=== PATIENT | female | born 1965 | race Caucasian/White ===

== ENCOUNTER → 2016-11-23 | Outpatient (CLI) | payer BC ==
[2016-11-23 12:14] LABS: MEAN CELL VOLUME 85.3 fL (80-100); MEAN CORPUSCULAR HEMOGLOBIN 29.4 pg (25-34); MEAN CORPUSCULAR HGB CONC 34.5 g/dl (32-36); MEAN PLATELET VOLUME 10.5 fL (7.4-10.4); PLATELET COUNT 224 K/uL (130-400); RED BLOOD COUNT 4.69 M/uL (4.2-5.4); WHITE BLOOD COUNT 5.09 K/uL (4.8-10.8)
[2016-11-23 12:41] LABS: ALKALINE PHOSPHATASE 72 U/L (45-117); ALT/SGPT 32 U/L (12-78); AST/SGOT 23 U/L (15-37); BLOOD UREA NITROGEN 22 mg/dl (7-18); BUN/CREATININE RATIO 25.5 (10-20); CALCIUM 9.4 mg/dl (8.5-10.1); CARBON DIOXIDE 25 mmol/L (21-32); CHLORIDE 109 mmol/L (98-107); CHOLESTEROL 210 mg/dl (0-200); CHOLESTEROL/HDL RATIO 2.8; CREATININE 0.88 mg/dl (0.60-1.20); GLUCOSE 91 mg/dl (70-99); HDL CHOLESTEROL 76 mg/dl; LDL CHOLESTEROL CALCULATED 109 mg/dl; POTASSIUM 4.4 mmol/L (3.5-5.1); SODIUM 143 mmol/L (136-145); TRIGLYCERIDES 126 mg/dl (0-150); VERY LOW DENSITY LIPOPROT CALC 25 mg/dl
[2016-11-23 12:42] LABS: ALB/GLOB RATIO 1.1 (0.9-2)
== END | disposition home or self-care (01) ==
LOC: C.LABBFT 08:49
PROVIDERS: ATTEND Nurse Practitioner
DX: E78.5 Hyperlipidemia, unspecified (principal)

== ENCOUNTER → 2016-12-28 | Outpatient (CLI) | payer BC ==
[~2016-12-28] MED LIST: GLUCTAB7 PO; SPECCAP4 PO; [UNRECOGNIZED DRUG - CODE] PO
== END | disposition home or self-care (01) ==
LOC: C.PAPS 14:48
PROVIDERS: ATTEND Obstetrics & Gynecology
DX: Z01.419 Encounter for gynecological examination (general) (routine) without abnormal findings (principal)

== ENCOUNTER → 2017-07-12 | Day surgery (SDC) | payer BC ==
[2017-06-27 15:33] VITALS: Ht 167.6 cm; Wt 100.0 kg
[~2017-07-12] VITALS: Ht 167.6 cm; Wt 100.0 kg
[~2017-07-12] MED LIST changes: +LIDOCAINE HCL 2% 2 ML VIAL (20MG/ML) ONE; +PROPOFOL IV EMULSION 10 MG/ML 20 ML VIAL IV ONE; +SODIUM CHLORIDE 0.9% 500ML 500 ML IV ONE
--- NOTE | 2017-07-12 13:40 | Endo History and Physical ---
History & Physical Date of Service: Jul 12, 2017. Chief Complaint: Screening Family Hx of Colon Polyps Referring Physician: Dr Baig History of Present Illness 51 yo CF who presents for screening colonoscopy. Past Surgical History Hx Cardiac Surgery: No Hx Internal Defibrillator: No Hx Pacemaker: No Hx Abdominal Surgery: Yes (SAV, TUBAL LIGATION) Hx of Implantable Prosthesis: No Hx Post-Op Nausea and Vomiting: Yes (EXTREME) Hx Cancer Surgery: No Hx Thoracic Surgery: No Hx Orthopedic: No Hx Urinary Tract Surgery: No Family History Polyp Social History Smoking Status: Former Smoker Hx Substance Use: No Hx Alcohol Use: Yes (OCCASIONALLY) Allergies Coded Allergies: No Known Allergies (Verified , 07/12/17) Current Medications Reported Home Medications Medications Dose Route/Sig Max Daily Dose Days Date Category Dose Instructions Glucosamine Chondroitin (Jczpwjapcyg-Sghsbmpvumy-Rjx C-) 1 Tab Tab 1 Tab PO QAM 06/27/17 Reported Collagen Ultra (Specialty Vitamins Products) 1 Cap Cap 2 Cap PO QAM 06/27/17 Reported [Mult-James] 1 Dose PO QAM 06/27/17 Reported [employer] Vital Signs Weight (Kilograms): 100 Height (Feet): 5 Height (Inches): 6 Date Time Temp Pulse Resp B/P (MAP) Pulse Ox O2 Delivery O2 Flow Rate FiO2 07/12/17 13:14 37 74 20 141/81 (101) 98 Room Air Physical Exam General Appearance: WD/WN, no apparent distress Respiratory/Chest: Auscultation: breath sounds normal Cardiovascular: Heart Auscultation: RRR Abdomen: Bowel Sounds: normal Inspection & Palpation: soft, non-distended, no tenderness, guarding & rebound Assessment and Plan Assessment: 51 yo CF who presents for screening colonoscopy. Plan: Proceed with colonoscopy.
--- NOTE | 2017-07-12 14:03 | Discharge Instructions ---
Endoscopy Patient Instructions Date / Procedure(s) Performed Jul 12, 2017. Colonoscopy Allergy Information Coded Allergies: No Known Allergies (Verified , 07/12/17) Discharge Date / Findings Jul 12, 2017. Rectal polyp Diverticulosis Internal hemorrhoids Medication Instructions OK to resume all medications today as prescribed Reported Home Medications Medications Dose Route/Sig Max Daily Dose Days Date Category Dose Instructions Glucosamine Chondroitin (Mcaebrellix-Swmznueyyfu-Rpl C-) 1 Tab Tab 1 Tab PO QAM 06/27/17 Reported Collagen Ultra (Specialty Vitamins Products) 1 Cap Cap 2 Cap PO QAM 06/27/17 Reported [Mult-James] 1 Dose PO QAM 06/27/17 Reported [employer] Provider Instructions Activity Restrictions - No exercising or heavy lifting for 24 hours. - Do not drink alcohol the day of the procedure. - Do not drive a car or operate machinery until the day after the procedure. - Do not make any important decisions or sign important papers in 24 hours after the procedure. Following Day: - Return to full activity which may include returning to work/school. Diet Start your diet with liquids and light foods (jello, soup, juice, toast). Then eat your usual diet if not nauseated. Treatment For Common After Affects For mild abdominal pain, bloating, or excessive gas: - Rest - Eat lightly - Lie on right side Follow-Up Information Follow-up with Dr Baig as scheduled Anesthesia Information What You Should Know You have had a procedure that required some medicine to reduce anxiety and discomfort. This treatment is called moderate sedation. After receiving the treatment, you may be sleepy, but you will be able to breathe on your own. The effects of the treatment may last for several hours. Follow these instructions along with Activity/Diet recommendations noted above: * Do NOT do anything where dizziness or clumsiness would be dangerous. * Rest quietly at home today, then you can be up and about tomorrow. * Have a responsible person stay with you the rest of today. * You may have had an I.V. today. If so, you may take the dressing off later today. Recommendations Call your doctor if: * Trouble breathing * Continuous vomiting for more than 24 hours * Temperature above 101 degrees * Severe abdominal pain or bloating * Pain not relieved by pain medicine ordered * There is increased drainage or redness from any incision * A large amount of rectal bleeding greater than 2-3 tablespoons. (If you had a polyp/s removed or have hemorrhoids, a small amount of blood - from the rectum is to be expected.) * You have any unanswered questions or concerns. IN THE EVENT OF A SERIOUS EMERGENCY, GO TO THE NEAREST EMERGENCY ROOM Your discharge instructions were prepared by provider Menedz Ny. Patient Instructions Signature Page Mila Kelly Patient (or Guardian) Signature/Date: I have read and understand the instructions given to me by my caregivers. Caregiver/RN/Doctor Signature/Date: The above-named patient and/or guardian has received patient instructions on this date. + Original Patient Signature Page (only) stays with chart. Please make copy for patient.
--- NOTE | 2017-07-12 14:07 | GI REPORT ---
Procedure Date: 07/12/2017 1:32 PM Procedure: Colonoscopy Indications: Screening for colorectal malignant neoplasm Medicines: Monitored Anesthesia Care Complications: No immediate complications. Estimated Blood Loss: Estimated blood loss: none. Procedure: Pre-Anesthesia Assessment: - Prior to the procedure, a History and Physical was performed, and patient medications and allergies were reviewed. The patient's tolerance of previous anesthesia was also reviewed. The risks and benefits of the procedure and the sedation options and risks were discussed with the patient. All questions were answered, and informed consent was obtained. Prior Anticoagulants: The patient has taken no previous anticoagulant or antiplatelet agents. ASA Grade Assessment: II - A patient with mild systemic disease. After reviewing the risks and benefits, the patient was deemed in satisfactory condition to undergo the procedure. After I obtained informed consent, the scope was passed under direct vision. Throughout the procedure, the patient's blood pressure, pulse, and oxygen saturations were monitored continuously. The scope was introduced through the anus and advanced to the terminal ileum. The colonoscopy was performed without difficulty. The patient tolerated the procedure well. The quality of the bowel preparation was good. The terminal ileum, ileocecal valve, appendiceal orifice, and rectum were photographed. Findings: A 3 mm polyp was found in the rectum. The polyp was sessile. The polyp was removed with a cold biopsy forceps. Resection and retrieval were complete. Multiple small-mouthed diverticula were found in the sigmoid colon. Non-bleeding internal hemorrhoids were found during retroflexion. The hemorrhoids were small. Impression: - One 3 mm polyp in the rectum, removed with a cold biopsy forceps. Resected and retrieved. - Diverticulosis in the sigmoid colon. - Non-bleeding internal hemorrhoids. Recommendation: - Resume previous diet. - Continue present medications. - Repeat colonoscopy for surveillance based on pathology results. - Return to primary care physician as previously scheduled. Mendez Ny DO 07/12/2017 2:06:36 PM This report has been signed electronically. Note Initiated On: 07/12/2017 1:32 PM I attest to the content of the Intraoperative Record and orders documented therein, exceptions below
[2017-07-12 14:31] VITALS: BP 152/96; PULSE 68; O2SAT 98
--- NOTE | 2017-07-12 14:36 | Anesthesiology Progress Note ---
Anesthesia Post Op Note Date & Time Jul 12, 2017 at 14:36 Vital Signs Pain Intensity: 0 Vital Signs Past 12 Hours Date Time Temp Pulse Resp B/P (MAP) Pulse Ox O2 Delivery O2 Flow Rate FiO2 07/12/17 14:31 68 16 152/96 (114) 98 Room Air 07/12/17 14:16 72 16 128/79 (95) 96 Room Air 07/12/17 14:01 83 16 113/63 (80) 95 Room Air 07/12/17 13:14 37 74 20 141/81 (101) 98 Room Air Notes Mental Status: alert / awake / arousable, participated in evaluation Pt Amnestic to Procedure: Yes Nausea / Vomiting: adequately controlled Pain: adequately controlled Airway Patency, RR, SpO2: stable & adequate BP & HR: stable & adequate Hydration State: stable & adequate Anesthetic Complications: no major complications apparent
== END | disposition home or self-care (01) ==
LOC: C.GI 12:40
PROVIDERS: ATTEND Internal Medicine
DX: Z12.11 Encounter for screening for malignant neoplasm of colon (principal); K62.1 Rectal polyp; K57.30 Diverticulosis of large intestine without perforation or abscess without bleeding; K64.8 Other hemorrhoids; Z83.71 Family history of colonic polyps; Z87.891 Personal history of nicotine dependence

== ENCOUNTER → 2017-10-01 | Outpatient (CLI) | payer OTHER ==
[~2017-10-01] MED LIST changes: -LIDOCAINE HCL 2% 2 ML VIAL (20MG/ML) ONE; -PROPOFOL IV EMULSION 10 MG/ML 20 ML VIAL IV ONE; -SODIUM CHLORIDE 0.9% 500ML 500 ML IV ONE
--- NOTE | 2017-10-02 07:52 | MAMMOGRAPHY REPORT ---
BILATERAL DIGITAL SCREENING MAMMOGRAM TOMOSYNTHESIS WITH CAD: 10/01/2017 CLINICAL HISTORY: Routine screening. Patient has no complaints. TECHNIQUE: Breast tomosynthesis in addition to standard 2D mammography was performed. Current study was also evaluated with a Computer Aided Detection (CAD) system. COMPARISON: Comparison is made to exams dated: 09/29/2016 mammogram, 09/28/2015 mammogram, 09/23/2014 ma mmogram, 09/22/2013 mammogram, 09/27/2012 mammogram, and 09/19/2012 mammogram - [facility] er. BREAST COMPOSITION: There are scattered areas of fibroglandular density in both breasts. FINDINGS: The parenchymal pattern is unchanged. No developing mass, architectural distortion or clus ter of suspicious microcalcifications is seen in either breast. IMPRESSION: ACR BI-RADS CATEGORY 2: BENIGN There is no mammographic evidence of malignancy. A 1 year screening mammogram is recommended. The pa tient will receive written notification of the results. Approximately 10% of breast cancers are not detected with mammography. A negative mammographic report should not delay biopsy if a clinically suggestive mass is present. Maria Del Carmen Dewey M.D. ay/:10/01/2017 16:58:13 Panelbeater: Laure Devi, [facility] letter sent: Normal 1/2 BI-RADS Code: ACR BI-RADS Category 2: Benign
== END | disposition home or self-care (01) ==
LOC: C.MAMM 08:54
PROVIDERS: ATTEND Obstetrics & Gynecology
DX: Z12.31 Encounter for screening mammogram for malignant neoplasm of breast (principal)

== ENCOUNTER → 2017-11-26 | Outpatient (CLI) | payer OTHER ==
[2017-11-26 13:29] LABS: ALBUMIN 3.8 gm/dl (3.4-5.0); ALT/SGPT 63 U/L (12-78); BLOOD UREA NITROGEN 23 mg/dl (7-18); CALCIUM 9.4 mg/dl (8.5-10.1); CARBON DIOXIDE 29 mmol/L (21-32); CHOLESTEROL 214 mg/dl (0-200); CREATININE 1.02 mg/dl (0.60-1.20); GLUCOSE 96 mg/dl (70-99); POTASSIUM 4.5 mmol/L (3.5-5.1); SODIUM 138 mmol/L (136-145)
[2017-11-26 13:32] LABS: ALKALINE PHOSPHATASE 99 U/L (45-117); AST/SGOT 37 U/L (15-37); LDL CHOLESTEROL CALCULATED 122 mg/dl; TOTAL PROTEIN 7.7 gm/dl (6.4-8.2)
== END | disposition home or self-care (01) ==
LOC: C.LABBFT 08:43
PROVIDERS: ATTEND Nurse Practitioner
DX: E78.5 Hyperlipidemia, unspecified (principal); I10 Essential (primary) hypertension

== ENCOUNTER 2018-10-16 21:21 | Observation (INO) ==
[2018-10-16] MEDS ORDERED: ONDANSETRON INJ 2 MG/ML 2 ML VIAL IV STA (21:44)
[2018-10-16] MEDS ORDERED: SODIUM CHLORIDE 0.9% 500 ML IV SCH (21:45)
[2018-10-16 22:03] LABS: Basophils # (auto) 0.02 K/uL (0-0.2); Basophils % (auto) 0.2 %; Eosinophils # (auto) 0.08 K/uL (0-0.5); Eosinophils % (auto) 0.6 %; Hematocrit (blood only) 39.9 % (37-47); Hemoglobin 14.1 g/dL (12.0-16.0); Immature Granulocytes # (auto) 0.03 K/uL (0.00-0.02); Immature Granulocytes % (auto) 0.2 %; Lymphocytes # (auto) 2.19 K/uL (1.2-3.4); Lymphocytes % (auto) 17.3 %; Mean Corpuscular Hgb Conc 35.3 g/dL (32-36); Mean Corpuscular Volume 84.9 fL (80-100); Mean Platelet Volume 9.7 fL (7.4-10.4); Monocytes # (auto) 0.73 K/uL (0.11-0.59); Monocytes % (auto) 5.8 %; Neutrophils # (auto) 9.61 K/uL (1.4-6.5); Neutrophils % (auto) 75.9 %; Platelet Count 230 K/uL (130-400); RDW Coefficient of Variation 12.8 % (11.5-14.5); RDW Standard Deviation 39.6 fL (36.4-46.3); White Blood Count 12.66 K/uL (4.8-10.8)
[2018-10-16 22:12] LABS: Appearance Urine Clear (Clear); Bilirubin Urine Negative (Negative); Color Urine Dark Yellow; Glucose Urine UA Negative (Negative); Ketones Urine Trace (Negative); Leukocyte Esterase Urine Negative (Negative); Nitrite Urine Negative (Negative); Protein Urine Negative (Negative); Specific Gravity Urine 1.017 (1.000-1.030); Urobilinogen Urine Negative (Negative)
[2018-10-16 22:13] LABS: Pregnancy Test, Urine Negative (Negative)
[2018-10-16 22:20] LABS: Albumin Level 4.1 gm/dl (3.4-5.0); Aspartate Aminotransferase 21 U/L (15-37); BUN Creatinine Ratio 16.2 (10-20); Blood Urea Nitrogen 18 mg/dl (7-18); Calcium 9.1 mg/dl (8.5-10.1); Carbon Dioxide 26 mmol/L (21-32); Chloride 104 mmol/L (98-107); Creatinine Clr Calc Pharmacy 78.5 ml/min; Est GFR (African American) 67.3; Est GFR (Non-African American) 58.1; Glucose 101 mg/dl (70-99); Potassium 3.5 mmol/L (3.5-5.1); Sodium 138 mmol/L (136-145)
[2018-10-16 22:25] LABS: Alanine Aminotransferase 34 U/L (12-78); Albumin Globulin Ratio 1.1 (0.9-2); Alkaline Phosphatase 81 U/L (45-117); Bilirubin,Total 0.7 mg/dl (0.2-1); Globulin 3.7 gm/dl (2.5-4.0); Total Protein 7.8 gm/dl (6.4-8.2); Troponin I < 0.015 ng/ml (0-0.045)
[2018-10-16] MEDS ORDERED: IOVERSOL 100ml IV PRN (22:40)
--- NOTE | 2018-10-16 22:51 | CT Scan Report ---
CT abd pelvis IV con only CT DOSE: 1275.81 mGy.cm HISTORY: Flank pain n/v/RLQ TECHNIQUE: Multiaxial CT images of the abdomen and pelvis were performed following the use of intrave nous contrast. A dose lowering technique was utilized adhering to the principles of ALARA. COMPARISON STUDY: None. FINDINGS: Lung bases are clear. The liver spleen and pancreas are unremarkable. Prior cholecystectomy . The adrenal glands are normal. The kidneys enhance appropriately. 5 mm nonobstructing calcification mid pole left kidney. No evidence for hydroureteronephrosis. Nonobstructive bowel pattern. The appendix is mildly distended and fluid-filled at 8 mm. There is a t race amount of periappendiceal infiltrative change. There is no evidence for abscess collection or ob struction. Mild chronic sigmoid diverticulosis. No evidence for acute diverticulitis. IMPRESSION: 1. acute appendicitis. 2. The appendix is distended and fluid-filled at 8 millimeters with a trace amount of periappendiceal infiltrative change. 3. No evidence for abscess collection or obstructive change. 4. 5 mm nonobstructing left renal calcification. 5. Mild chronic sigmoid diverticulosis. No evidence for diverticulitis. The above report was generated using voice recognition software. It may contain grammatical, syntax or spelling errors. Electronically signed by: Kali Delgado M.D. 10/16/2018 10:49 PM
[2018-10-16] MEDS ORDERED: cefOXitin 2,000 MG/60 ML BAG IV STA (23:02)
--- NOTE | 2018-10-16 23:06 | Emergency Department Note ---
Entered by Lois Crowder acting as a scribe for Alexis Paul M.D. History of Present Illness General Chief complaint: Abdominal Pain Stated complaint: RLQ PAIN, NAUSEA, VOMITING Source: patient Mode of arrival: ambulatory Limitations: no limitations History of Present Illness Provider complaint: abdominal pain Onset (ago): hour(s) (earlier today) Location: abdomen and right Pain Consistency: + other (persistent) Maximum Pain Intensity: 10 Current Pain Intensity: 7 Quality: + other (bloated) Associated symptoms: + denies other symptoms (urinary symptoms), + fever/chills and + nausea/vomiting The patient is a 52 year old female who presents to the Emergency Room with complaints of a persistent abdominal pain that began earlier today. The patient reports that the pain is located in her right lower quadrant and notes that she feels bloated. She states that she has been nauseous and has had 2 episodes of emesis. She denies any sick contacts. The patient notes that she has had chills and has been unable to pass gas. The patient states that she has a history of hypertension, cholecystectomy, right eye retinal reattachment, and tubal ligation. She denies any urinary symptoms. Home Medications Home Medications Medication Instructions Recorded Confirmed Type amlodipine 5 mg PO DAILY 10/16/18 10/16/18 History timolol maleate 1 drp OPR BID 10/16/18 10/16/18 History Allergies Allergy/AdvReac Type Severity Reaction Status Date / Time No Known Allergies Allergy Verified 10/16/18 21:57 Past Med/Surg History Medical History Retinal defect of right eye with detachment (Resolved) Hypertension Morbid obesity Surgical History History of tubal ligation History of eye surgery History of cholecystectomy Social History marital status: Current Living Situation: Spouse Feels Safe at Home: Yes Smoking Status: Never smoker Review of Systems See HPI for pertinent positives & negatives. and A total of 10 systems reviewed and were otherwise negative Physical Exam Vital Signs Vital Signs - 24 hr 10/16/18 21:23 10/16/18 21:44 10/16/18 23:05 Temperature 36.8 C Temperature Source Oral Sepsis Recent Fever Within 48 Hours No Sepsis Action Taken by Nursing No Action Required Pulse Rate 89 Pulse Rate [Apical] 84 Respiratory Rate 20 18 Respiratory Effort / Characteristics Non-Labored Spontaneous Non-Labored Spontaneous Respiratory Depth Normal Normal Blood Pressure 172/95 H Blood Pressure [Right Arm] 154/91 H Blood Pressure Mean 120 Blood Pressure Mean [Right Arm] 112 Pulse Oximetry 96 98 Oxygen Delivery Method Room Air Room Air Room Air 10/16/18 23:59 Temperature Temperature Source Sepsis Recent Fever Within 48 Hours Sepsis Action Taken by Nursing Pulse Rate 85 Pulse Rate [Apical] Respiratory Rate 18 Respiratory Effort / Characteristics Respiratory Depth Blood Pressure 150/88 H Blood Pressure [Right Arm] Blood Pressure Mean Blood Pressure Mean [Right Arm] Pulse Oximetry 98 Oxygen Delivery Method Room Air GENERAL: Awake, alert, apperas mildly uncomfortable HENT: Normocephalic, atraumatic. EYES: Normal conjunctiva. Sclera non-icteric. NECK: Supple. No nuchal rigidity. RESPIRATORY: Clear to auscultation. No wheezes. Normal respiratory effort. CARDIAC: Normal rate. Normal rhythm. Extremities warm and well perfused. GI: Soft, non-distended. Mild epigastric tenderness to palpation. Moderate right lower quadrant tendenress. Some guarding. No masses. RECTAL: Deferred. MUSCULOSKELETAL: Atraumatic. Chest examination reveals no tenderness. LOWER EXTREMITIES: Calves are equal size bilaterally and non-tender. No edema NEURO: Normal sensorium. No sensory or motor deficits noted. No facial droop. SKIN: Warm and dry. No rash or jaundice noted. Course 2138: Past medical records reviewed. The patient was evaluated in room B6, and a complete history and physical examination were performed. 2301: I reviewed the patient's case with Dr. Ramirez - [facility] General Surgery. She will evaluate the patient for further management. Administered Medications Ioversol (Optiray 320 100ml) 93 ml IV ONCE PRN PRN Reason: Interaction Checking Stop: 10/20/18 22:39 Last Admin: 10/16/18 22:41 Dose: 93 ml Discontinued Medications Sodium Chloride (Nss) 500 mls @ 999 mls/hr IV .Q31M MARY Stop: 10/16/18 22:15 Last Infusion: 10/16/18 22:35 Dose: 0 mls/hr Admin: 10/16/18 22:08 Dose: 999 mls/hr Cefoxitin Sodium (Mefoxin) 2,000 mg in 60 mls @ 100 mls/hr IV NOW STA Stop: 10/16/18 23:37 Last Infusion: 10/17/18 00:01 Dose: 0 mls/hr Admin: 10/16/18 23:14 Dose: 100 mls/hr Ondansetron HCl (Zofran) 4 mg IV NOW STA Stop: 10/16/18 21:45 Last Admin: 10/16/18 22:08 Dose: 4 mg Medical Decision Making Differential Diagnosis Differential diagnosis includes: gastritis, peptic ulcer disease, GERD, gallbladder disease, pancreatitis, small bowel obstruction, acute coronary syndrome, pericarditis, ischemic bowel, irritable bowel disease, irritable bowel syndrome, appendicitis, diverticulitis, malignancy, hernia, UTI, torsion, perforation, trauma, and kidney stones. Medical Records Attestation: I reviewed the patient's medical records. Home Medications Current Medication List: was personally reviewed by me Laboratory Data Attestation: I reviewed the patient's lab results. Result diagrams: 10/16/18 21:55 10/16/18 21:55 Lab Results 10/16/18 10/16/18 10/16/18 Range/Units 21:55 21:55 21:55 WBC 12.66 H (4.8-10.8) K/uL RBC 4.70 (4.2-5.4) M/uL Hgb 14.1 (12.0-16.0) g/dL Hct 39.9 (37-47) % MCV 84.9 (80-100) fL MCH 30.0 (25-34) pg MCHC 35.3 (32-36) g/dL RDW Std Deviation 39.6 (36.4-46.3) fL RDW Coeff of Loan 12.8 (11.5-14.5) % Plt Count 230 (130-400) K/uL MPV 9.7 (7.4-10.4) fL Immature Gran % (Auto) 0.2 % Neut % (Auto) 75.9 % Lymph % (Auto) 17.3 % Major % (Auto) 5.8 % Eos % (Auto) 0.6 % Baso % (Auto) 0.2 % Immature Gran # (Auto) 0.03 H (0.00-0.02) K/uL Neut # (Auto) 9.61 H (1.4-6.5) K/uL Lymph # (Auto) 2.19 (1.2-3.4) K/uL Major # (Auto) 0.73 H (0.11-0.59) K/uL Eos # (Auto) 0.08 (0-0.5) K/uL Baso # (Auto) 0.02 (0-0.2) K/uL Sodium 138 (136-145) mmol/L Potassium 3.5 (3.5-5.1) mmol/L Chloride 104 (98-107) mmol/L Carbon Dioxide 26 (21-32) mmol/L Anion Gap 8.0 (3-11) BUN 18 (7-18) mg/dl Creatinine 1.10 (0.6-1.2) mg/dl Est Cr Clr Drug Dosing 78.5 ml/min Est GFR ( Amer) 67.3 Est GFR (Non-Af Amer) 58.1 BUN/Creatinine Ratio 16.2 (10-20) Glucose 101 H (70-99) mg/dl Calcium 9.1 (8.5-10.1) mg/dl Total Bilirubin 0.7 (0.2-1) mg/dl AST 21 (15-37) U/L ALT 34 (12-78) U/L Alkaline Phosphatase 81 (45-117) U/L Troponin I < 0.015 (0-0.045) ng/ml Total Protein 7.8 (6.4-8.2) gm/dl Albumin 4.1 (3.4-5.0) gm/dl Globulin 3.7 (2.5-4.0) gm/dl Albumin/Globulin Ratio 1.1 (0.9-2) Lipase 118 (73-393) U/L Urine Color Dark Yellow Urine Appearance Clear (Clear) Urine pH 5.0 (4.5-7.5) Ur Specific Weston 1.017 (1.000-1.030) Urine Protein Negative (Negative) Urine Glucose (UA) Negative (Negative) Urine Ketones Trace H (Negative) Urine Blood Negative (Negative) Urine Nitrite Negative (Negative) Urine Bilirubin Negative (Negative) Urine Urobilinogen Negative (Negative) Ur Leukocyte Esterase Negative (Negative) Urine Test (Negative) 10/16/18 Range/Units 21:55 WBC (4.8-10.8) K/uL RBC (4.2-5.4) M/uL Hgb (12.0-16.0) g/dL Hct (37-47) % MCV (80-100) fL MCH (25-34) pg MCHC (32-36) g/dL RDW Std Deviation (36.4-46.3) fL RDW Coeff of Loan (11.5-14.5) % Plt Count (130-400) K/uL MPV (7.4-10.4) fL Immature Gran % (Auto) % Neut % (Auto) % Lymph % (Auto) % Major % (Auto) % Eos % (Auto) % Baso % (Auto) % Immature Gran # (Auto) (0.00-0.02) K/uL Neut # (Auto) (1.4-6.5) K/uL Lymph # (Auto) (1.2-3.4) K/uL Major # (Auto) (0.11-0.59) K/uL Eos # (Auto) (0-0.5) K/uL Baso # (Auto) (0-0.2) K/uL Sodium (136-145) mmol/L Potassium (3.5-5.1) mmol/L Chloride (98-107) mmol/L Carbon Dioxide (21-32) mmol/L Anion Gap (3-11) BUN (7-18) mg/dl Creatinine (0.6-1.2) mg/dl Est Cr Clr Drug Dosing ml/min Est GFR ( Amer) Est GFR (Non-Af Amer) BUN/Creatinine Ratio (10-20) Glucose (70-99) mg/dl Calcium (8.5-10.1) mg/dl Total Bilirubin (0.2-1) mg/dl AST (15-37) U/L ALT (12-78) U/L Alkaline Phosphatase (45-117) U/L Troponin I (0-0.045) ng/ml Total Protein (6.4-8.2) gm/dl Albumin (3.4-5.0) gm/dl Globulin (2.5-4.0) gm/dl Albumin/Globulin Ratio (0.9-2) Lipase (73-393) U/L Urine Color Urine Appearance (Clear) Urine pH (4.5-7.5) Ur Specific Weston (1.000-1.030) Urine Protein (Negative) Urine Glucose (UA) (Negative) Urine Ketones (Negative) Urine Blood (Negative) Urine Nitrite (Negative) Urine Bilirubin (Negative) Urine Urobilinogen (Negative) Ur Leukocyte Esterase (Negative) Urine Test Negative (Negative) Imaging Data Radiologist's Impression: Radiology results as stated below per my review and the radiologist's interpretation: CT abd pelvis IV con only CT DOSE: 1275.81 mGy.cm HISTORY: Flank pain n/v/RLQ TECHNIQUE: Multiaxial CT images of the abdomen and pelvis were performed following the use of intravenous contrast. A dose lowering technique was utilized adhering to the principles of ALARA. COMPARISON STUDY: None. FINDINGS: Lung bases are clear. The liver spleen and pancreas are unremarkable. Prior cholecystectomy. The adrenal glands are normal. The kidneys enhance appropriately. 5 mm nonobstructing calcification mid pole left kidney. No evidence for hydroureteronephrosis. Nonobstructive bowel pattern. The appendix is mildly distended and fluid-filled at 8 mm. There is a trace amount of periappendiceal infiltrative change. There is no evidence for abscess collection or obstruction. Mild chronic sigmoid diverticulosis. No evidence for acute diverticulitis. IMPRESSION: 1. acute appendicitis. 2. The appendix is distended and fluid-filled at 8 millimeters with a trace amount of periappendiceal infiltrative change. 3. No evidence for abscess collection or obstructive change. 4. 5 mm nonobstructing left renal calcification. 5. Mild chronic sigmoid diverticulosis. No evidence for diverticulitis. The above report was generated using voice recognition software. It may contain grammatical, syntax or spelling errors. Electronically signed by: Kali Delgado M.D. 10/16/2018 10:49 PM ECG Data Attestation: I personally reviewed and interpreted this ECG as follows: Indication: abdominal pain Rate (beats per minute): 72 Rhythm: normal sinus Findings: + T-wave inversion (in lead 3); no PVC, no ST depression and no ST elevation Comparison ECG Date: no prior available Blood Pressure Blood Pressure Findings: Elevated blood pressure Blood Pressure Disposition: elevated BP felt to be situational MDM Narrative 52-year-old female history hypertension presenting today complaining of onset this evening of some mild epigastric and right abdominal and right lower abdominal pain. No trauma or fevers reported. Nausea and vomiting reported without diarrhea. States she feels bloated. Denies history. Given the abdominal tenderness CT scan pelvis completed to exclude appendicitis or other acute intra-abdominal pathology such as perforation. Prior cholecystectomy. She not acutely peritoneal however. Prior cholecystectomy. Urinalysis completed as well. EKG and troponin completed help exclude ACS which I do not believe this is. Laboratory studies show a slight leukocytosis of his significant pancreatitis/lipase elevation or LFT abnormality. Urinalysis without signs of infection. CT scan consistent with acute appendicitis without evidence of perforation or abscess. Patient updated. Cefoxitin given after discussion with Dr. Ramirez our general surgeon. Plans made for admission for operative intervention. Patient declining pain medicine. Impression & Plan Acute appendicitis Discharge Plan Visit Data Chief Complaint: Abdominal Pain Stated Complaint: RLQ PAIN, NAUSEA, VOMITING ED Provider: Alexis Paul Discharge Problem: Acute appendicitis Patient Disposition: Being Evaluated by Surgeon Discharge Instructions Interventions: ED Discharge Assessment Last Done: 10/16/18 23:59 Forms Stand Alone Forms: Call Back Authorization, My [facility] Prescriptions Prescriptions: No Action amlodipine 5 mg tablet 5 mg PO DAILY RF: 0 timolol maleate 0.5 % drops 1 drp OPR BID RF: 0 Referrals Referrals: Semaj Baig III, MD [Primary Care Provider] - The scribe's documentation has been prepared under my direction and personally reviewed by me in its entirety. I confirm that the note above accurately reflects all work, treatment, procedures, and medical decision making performed by me.
[2018-10-16] MEDS ORDERED: ACETAMINOPHEN 1000 MG/100 ML IV IV STA (23:14)
[2018-10-16] MEDS ORDERED: DEXAMETHASONE SOD INJ 4 MG/ML VIAL ONE (23:38)
[2018-10-16] MEDS ORDERED: ROCURONIUM BROMIDE 10 MG/ML 5 ML VIAL ONE (23:39)
[2018-10-16] MEDS ORDERED: LIDOCAINE HCL 2% 2 ML VIAL/AMP(20MG/ML) INFIL ONE (23:39)
[2018-10-16] MEDS ORDERED: SUCCINYLCHOLINE CHLORIDE 20 MG/ML 10 ML VIAL ONE (23:39)
[2018-10-16] MEDS ORDERED: PROPOFOL IV EMULSION 10 MG/ML 20 ML VIAL IV ONE (23:39)
[2018-10-16] MEDS ORDERED: ONDANSETRON INJ 2 MG/ML 2 ML VIAL ONE (23:39)
--- NOTE | 2018-10-16 23:44 | History & Physical Report ---
Date of Service October 16, 2018 Assessment & Plan (1) Acute appendicitis: 52 yr old woman with acute appendicitis. Discussed laparoscopic appendectomy with risks of bleeding, infection, conversion to open, postop ileus / abscess, negative appy. Consent signed. For OR today. Expected hospital stay and 1-2 wk recovery period reviewed. Present on Admission?: Yes History of Present Illness Chief Complaint: right sided abdominal pain Primary Care Provider: Semaj Baig III, MD 52 yr old woman who developed right sided mid abdominal pain around 5 pm this evening. Pain was intense, sharp, worse with activity, associated with nausea and vomiting, chills. [place] more bloated than usual. Last bowel movement was this evening. Noted anorexia. Last meal was around noon. No similar episodes. Came to ER and found ot have appendicitis. Allergies Allergy/AdvReac Type Severity Reaction Status Date / Time No Known Allergies Allergy Verified 10/16/18 21:57 Home Medications Home Medications Medication Instructions Recorded Confirmed Type amlodipine 5 mg PO DAILY 10/16/18 10/16/18 History timolol maleate 1 drp OPR BID 10/16/18 10/16/18 History Past Med/Surg History Medical History Retinal defect of right eye with detachment (Resolved) Hypertension Surgical History History of tubal ligation History of eye surgery History of cholecystectomy Social History marital status: Current Living Situation: Spouse Feels Safe at Home: Yes Smoking Status: Never smoker Review of Systems All systems reviewed & are unremarkable except as noted in HPI & below Eyes: + problem reported (s/p recent retinal detachment surgery 7 weeks ago) Physical Exam 2 Vital Signs (Past 24 Hours): Last Vital Signs Temp 36.8 C 10/16/18 21:23 Pulse 84 10/16/18 23:05 Resp 18 10/16/18 23:05 BP 154/91 H 10/16/18 23:05 Pulse Ox 98 10/16/18 23:05 Constitutional: WD/WN, vitals as above Eyes: PERRL, conjunctivae normal, anicteric sclerae Respiratory: normal respiratory effort, lungs clear to auscultation Cardiovascular: RRR, no murmur, no edema Gastrointestinal (Abdomen): Inspection/Auscultation: abdomen normal to inspection and + hypoactive bowel sounds Percussion/Palpation: + abdomen tender (right lower quadrant over McBurney's point), + guarding (RLQ) and abdomen soft; no hernia Musculoskeletal: no cyanosis or clubbing, extremities motor strength 5/5 Neurologic: CN's II-XI intact bilaterally and awake Psychiatric: Orientation: alert and oriented x 3 Results & Data Laboratory Results Labs notable for mild leukocytosis at [address] scan shows 8 mm dilated appendix c/w acute appendicitis _ (1) Acute appendicitis Acute appendicitis type: unspecified acute appendicitis type Appendicitis abscess presence: Appendicitis gangrene presence: Appendicitis perforation presence: Qualified Code(s): K35.80 - Unspecified acute appendicitis
[2018-10-16] MEDS ORDERED: fentaNYL citrate 100 MCG/2 ML VIAL ONE (23:45)
[2018-10-16] MEDS ORDERED: MIDAZOLAM HCL 1 MG/ML 2ML VIAL ONE (23:45)
[2018-10-16] MEDS ORDERED: BUPIVACAINE 0.5 % 5 MG/1 ML MPF 30ML VIAL ONE (23:53)
--- NOTE | 2018-10-16 23:56 | Anesthesiology Consultation ---
Date of Service October 16, 2018 Assessment & Plan (1) Encounter for pre-operative examination: Chart Review Chart Review: Acceptable Risk for Surgery and Patient NOT seen in Pre Admission Testing Consults Requested none ASA [id number] Proposed Anesthesia Anesthesia Type: General Risk / Benefits Reviewed With: PT / POA / Parent / Guardian, Accepts Plan and Informed Consent Obtained NPO Date Last Intake of Fluids: 10/16/18 Time Last Intake of Fluids: 19:00 Date Last Intake of Solids: 10/16/18 Time Last Intake of Solids: 12:30 History Surgery Operation Date: 10/16/18 23:50 Proposed Procedures p Laparoscopic Appendectomy - Vanna Ramirez MD Height/Weight Height: 5 ft 6 in Weight: 116.4 kg Allergies Allergy/AdvReac Type Severity Reaction Status Date / Time No Known Allergies Allergy Verified 10/16/18 21:57 Medications Home Medications Medication Instructions Recorded Confirmed Last Taken amlodipine 5 mg PO DAILY 10/16/18 10/16/18 Unknown timolol maleate 1 drp OPR BID 10/16/18 10/16/18 Unknown Active Medications Generic Name Dose Route Start Last Admin Trade Name Freq PRN Reason Stop Dose Admin Ioversol 93 ml 10/16/18 22:40 10/16/18 22:41 Optiray 320 100ml IV 10/20/18 22:39 93 ml ONCE PRN Administration Interaction Checking Past Medical History Medical History Retinal defect of right eye with detachment (Resolved) Hypertension Morbid obesity Past Surgical History Surgical History History of tubal ligation History of eye surgery History of cholecystectomy Past Anesthesia History Other History of PONV Yes Motion Sickness Screening History of Motion Sickness: Yes Social History Smoking Status: Never smoker Do You Dip or Chew Tobacco: No Hx Alcohol Use: Yes alcohol intake frequency: a few times a month Hx Substance Use: No Exercise / Class Metabolic Activity II 4-5 Yardwork/Stairs/Walk up hill Negative for chest pain or shortness of breath. Review of Systems Positive for N/V Physical Exam Vital Signs Last Vital Signs Temp 36.8 C 10/16/18 21:23 Pulse 85 10/16/18 23:59 Resp 18 10/16/18 23:59 BP 150/88 H 10/16/18 23:59 Pulse Ox 98 10/16/18 23:59 Constitutional + morbidly obese ENMT Mouth: no TMJ abnormality and oral opening not small Thyromental Distance: < 3.5 Finger Breadths Mallampati Class: I Neck normal visual inspection; neck extension not limited Respiratory normal respiratory effort Auscultation: lungs clear to auscultation bilaterally Cardiovascular Rate/Rhythm: regular rate and regular rhythm Heart Sounds: no murmur Psychiatric A+Ox3, euthymic affect Testing Electrocardiogram Date: 10/16/18 Normal sinus rhythm, Low voltage QRS, Cannot rule out Anterior infarct , age undetermined, Abnormal ECG, No previous ECGs available Laboratory Results 10/16/18 21:55 10/16/18 21:55 Urine Color Dark Yellow 10/16/18 21:55 Urine Appearance Clear (Clear) 10/16/18 21:55 Urine pH 5.0 (4.5-7.5) 10/16/18 21:55 Ur Specific [place] 1.017 (1.000-1.030) 10/16/18 21:55 Urine Protein Negative (Negative) 10/16/18 21:55 Urine Glucose (UA) Negative (Negative) 10/16/18 21:55 Urine Ketones Trace (Negative) H 10/16/18 21:55 Urine Nitrite Negative (Negative) 10/16/18 21:55 Ur Leukocyte Esterase Negative (Negative) 10/16/18 21:55 Urine Test Negative (Negative) 10/16/18 21:55 10/16/18 21:55 Urine Test Negative
[2018-10-17] MEDS ORDERED: SCOPOLAMINE 1.5 MG TDSY ONE (00:19)
[2018-10-17] MEDS ORDERED: ATROPINE SULFATE 0.1 MG/ML 10ML SYR IV PRN (00:52)
[2018-10-17] MEDS ORDERED: ONDANSETRON INJ 2 MG/ML 2 ML VIAL IV PRN ×2 (00:52→02:54)
[2018-10-17] MEDS ORDERED: SCOPOLAMINE 1.5 MG TDSY TD ONE (00:52)
[2018-10-17] MEDS ORDERED: MEPERIDINE HCL 25 MG/ML CARP IV PRN (00:52)
[2018-10-17] MEDS ORDERED: fentaNYL citrate 100 MCG/2 ML VIAL IV PRN (00:52)
[2018-10-17] MEDS ORDERED: ePHEDrine sulfate 50 MG/ML AMP IV PRN (00:52)
[2018-10-17] MEDS ORDERED: PROMETHAZINE HCL 12.5 MG in SODIUM CHLORIDE 0.9% 50 ML IV PRN (00:52)
[2018-10-17] MEDS ORDERED: KETOROLAC 30 MG/ML VIAL ONE (00:56)
[2018-10-17] MEDS ORDERED: NEOSTIGMINE METHYLSULFATE 5 MG/5 ML SYR ONE (00:56)
[2018-10-17] MEDS ORDERED: GLYCOPYRROLATE 0.2 MG/ML VIAL ONE (00:56)
[2018-10-17] MEDS ORDERED: fentaNYL citrate 100 MCG/2 ML VIAL ONE (01:07)
--- NOTE | 2018-10-17 01:18 | Operative Report ---
Post Operative Report Pre & Post Diagnosis Operation Date: 10/16/18 23:50 Pre-Op Diagnosis: acute appendicitis Post-Op Diagnosis: acute appendicitis Procedure Operation Date: 10/16/18 23:50 Actual Procedures p Laparoscopic Appendectomy(Not Applicable) - Vanna Ramirez MD Surgeon Vanna Ramirez MD Public Relations Coordinator none Estimated Blood Loss 5 Findings Consistent with Post-Op Diagnosis Specimens appendix Description of Procedure early suppurative non perforated appendicitis I attest to the content of the Intraoperative Record and any orders documented therein. Any exceptions are noted below.
--- NOTE | 2018-10-17 01:51 | Anesthesiology Progress Note ---
Date of Service October 17, 2018 Anesthesia Post Procedure Vital Signs Vital Signs: Temp Pulse Pulse Resp BP BP Pulse Ox 10/17/18 01:45 36.6 C 68 16 142/89 H 97 10/17/18 01:35 36.6 C 70 16 160/80 H 98 10/17/18 01:25 36.6 C 87 14 156/90 H 97 10/16/18 23:59 85 18 150/88 H 98 10/16/18 23:05 84 18 154/91 H 98 10/16/18 21:23 36.8 C 89 20 172/95 H 96 Pain Intensity Right Lower Abdomen: Pain Intensity: 5 Notes Mental Status: alert / awake / arousable and participated in evaluation Patient Amnestic to Procedure: Yes Nausea / Vomiting: adequately controlled Pain: adequately controlled Airway Patency, RR, SpO2: stable & adequate BP & HR: stable & adequate Hydration State: stable & adequate Anesthetic Complications: no major complications apparent and Pt Satisfied with anesthetic care
--- NOTE | 2018-10-17 02:05 | Operative Report ---
DATE OF OPERATION: 10/17/2018 PREOPERATIVE DIAGNOSIS: Acute appendicitis. POSTOPERATIVE DIAGNOSIS: Same. OPERATIVE PROCEDURE: Laparoscopic appendectomy. SURGEON: Vanna Ramirez MD ANESTHESIA: General endotracheal anesthesia. SPECIMENS: Appendix. DRAINS: None. INTRAVENOUS FLUIDS: 800 mL. ESTIMATED BLOOD LOSS: 5 mL. OPERATIVE FINDINGS: Acute suppurative appendicitis, nonperforated. INDICATIONS: Ms. Kelly is a 52-year-old woman who presented with acute appendicitis. She was consented for laparoscopic appendectomy. DESCRIPTION OF PROCEDURE: The patient received Mefoxin preoperatively. After the induction of general endotracheal anesthesia, she had placement of sequential compression devices. She was positioned with her left arm tucked. Her abdomen was sterilely prepped and draped. She was then positioned in Trendelenburg. A supraumbilical incision was made and a Veress needle was placed into the peritoneal cavity. This was tested with the saline drop test. Pneumoperitoneum was established. Initial pressure was 4 mmHg and this was taken up to 15 mmHg. A 12 mm trocar was placed. Two 5 mm trocars were then placed, one in the left lower quadrant and one in the midline pubic area. Both these were done under direct vision. Initial inspection of the abdomen revealed a dilated appendix adjacent to the right lateral side wall. The appendix was grasped and the base of it on the cecum was free of any edematous changes. This area was cleaned and the appendix was divided off the cecum with a firing of the JONNY vascular load stapler. The appendiceal mesentery was taken with a second firing of the JONNY vascular load stapler. The appendix was placed in an Endobag and removed through the umbilical incision. Hemostasis was noted to be present. The abdomen was irrigated and suctioned clear. Trocars were removed. A 30 mL of 0.5% Marcaine had been used for local anesthesia throughout the procedure. The fascia of the umbilical incision was closed with 0 Vicryl stitches placed anteriorly. The skin of all 3 incisions were closed with running subcuticular 4-0 Vicryl sutures. Steri-Strips and sterile dressings were applied. She was awakened from anesthesia and taken to recovery in stable condition. I attest to the content of the Intraoperative Record and any orders documented therein. Any exception s are noted below.
[2018-10-17] MEDS: LACTATED RINGER'S 1,000 ML IV SCH ×2 (02:54→12:00)
[2018-10-17] MEDS ORDERED: ACETAMINOPHEN 325 MG TAB PO PRN (02:54)
[2018-10-17] MEDS ORDERED: MoRPHine SULFATE 4 MG/ML 1 ML CARP\\VIAL IV PRN ×3 (02:54)
[2018-10-17] MEDS ORDERED: IBUPROFEN 200 MG TAB PO PRN (02:54)
[2018-10-17] MEDS ORDERED: OXYCODONE/ACETAMINOPHEN 5mg/325mg TAB PO PRN ×2 (02:54)
[2018-10-17] MEDS ORDERED: CHECK SCOPOLAMINE PATCH PLACEMENT SCH (08:00)
[2018-10-17] MEDS ORDERED: TIMOLOL MALEATE 0.25% OP SOLN 5 ML BTL OPR SCH (09:00)
[2018-10-17] MEDS ORDERED: AMLODIPINE BESYLATE 5 MG TAB PO SCH (09:00)
--- NOTE | 2018-10-17 09:48 | Anesthesiology Progress Note ---
Date of Service October 17, 2018 Anesthesia Post Procedure Vital Signs Vital Signs: Temp Pulse Pulse Pulse Resp BP BP 10/17/18 07:45 36.4 C L 70 16 117/83 10/17/18 05:03 37.0 C 64 18 111/70 10/17/18 04:00 36.6 C 52 L 18 143/83 H 10/17/18 03:00 36.8 C 77 18 120/76 10/17/18 02:30 36.7 C 63 18 116/80 10/17/18 02:00 36.8 C 74 18 134/85 10/17/18 01:45 36.6 C 68 16 10/17/18 01:35 36.6 C 70 16 10/17/18 01:25 36.6 C 87 14 10/16/18 23:59 85 18 150/88 H 10/16/18 23:05 84 18 10/16/18 21:23 36.8 C 89 20 172/95 H BP Pulse Ox 10/17/18 07:45 93 10/17/18 05:03 93 10/17/18 04:00 93 10/17/18 03:00 93 10/17/18 02:30 93 10/17/18 02:00 96 10/17/18 01:45 142/89 H 97 10/17/18 01:35 160/80 H 98 10/17/18 01:25 156/90 H 97 10/16/18 23:59 98 10/16/18 23:05 154/91 H 98 10/16/18 21:23 96 Pain Intensity Right Lower Abdomen: Pain Intensity: 2 Notes Mental Status: alert / awake / arousable and participated in evaluation Patient Amnestic to Procedure: Yes Nausea / Vomiting: see Notes below Pain: adequately controlled Airway Patency, RR, SpO2: stable & adequate BP & HR: stable & adequate Hydration State: stable & adequate Anesthetic Complications: no major complications apparent and Pt Satisfied with anesthetic care
--- NOTE | 2018-10-17 10:37 | Surgery Progress Note ---
Date of Service October 17, 2018 Assessment & Plan (1) Acute appendicitis: POD # 0 s/p lap appy -vss, afebrile - minimal post op pain - no n/v Plan: Advance diet as tolerated PO Percocet and Ibuprofen prn pain decrease IV fluids to 50 cc/hr ambulate discharge this evening discharge instructions reviewed rx for percocet prn pain f/u surgical office 1-2 weeks Subjective feeling well, minimal pain , only had two Ibuprofen for pain, no percocet no n/v some bloating and gas pains tolerated liquids, regular diet ordered for lunch ambulating hallways urinating without difficulty no chest pain, sob, dizziness Physical Exam 2 Vital Signs (Past 24 Hours): Last Vital Signs Temp 36.4 C L 10/17/18 07:45 Pulse 70 10/17/18 07:45 Resp 16 10/17/18 07:45 BP 117/83 10/17/18 07:45 Pulse Ox 93 10/17/18 07:45 Constitutional: WD/WN, vitals as above + obese; no acute distress Respiratory: normal respiratory effort; no respiratory distress Gastrointestinal (Abdomen): Inspection/Auscultation: abdomen normal to inspection; abdomen not distended Percussion/Palpation: + abdomen tender ( mild at incision sites, appropriate post op) and abdomen soft; no guarding and abdomen not rigid Skin: no rashes, warm and dry + incision (dressings c/d/i) Psychiatric: A+Ox3, euthymic affect _ (1) Acute appendicitis Acute appendicitis type: unspecified acute appendicitis type Appendicitis abscess presence: Appendicitis gangrene presence: Appendicitis perforation presence: Qualified Code(s): K35.80 - Unspecified acute appendicitis
--- NOTE | 2018-10-18 12:14 | Discharge Summary ---
Date of Service October 18, 2018 Admission HPI Per Admitting Provider 52 yr old woman who developed right sided mid abdominal pain around 5 pm this evening. Pain was intense, sharp, worse with activity, associated with nausea and vomiting, chills. [place] more bloated than usual. Last bowel movement was this evening. Noted anorexia. Last meal was around noon. No similar episodes. Came to ER and found ot have appendicitis. Principal Diagnosis Acute Appendicitis Discharge Exam Constitutional WD/WN, vitals as above + obese; no acute distress Respiratory normal respiratory effort; no respiratory distress Gastrointestinal (Abdomen) Inspection/Auscultation: abdomen normal to inspection; abdomen not distended Percussion/Palpation: + abdomen tender (mild at incision sites, appropriate post op) and abdomen soft; no guarding and abdomen not rigid Skin no rashes, warm and dry + incision (dressings c/d/i) Psychiatric A+Ox3, euthymic affect Discharge Data Allergies Allergy/AdvReac Type Severity Reaction Status Date / Time No Known Allergies Allergy Verified 10/16/18 21:57 Consultations 10/16/18 23:02 ED Decision to Admit Stat Procedures Performed Operation Date: 10/16/18 23:50 Actual Procedures p Laparoscopic Appendectomy(Not Applicable) - Vanna Ramirez MD Ordered Studies 10/16/18 21:44 CT abd pelvis IV con only Stat Hospital Course (1) Acute appendicitis: Patient was taken to operating room for laparoscopic appendectomy possible open. Patient found to have acute appendicitis without perforation. She tolerated procedure well without any difficulties. Transfered to recovery then to medical/surgical floor for post op care. She was evaluated at POD # 0, vss, afebrile, minimal post op pain, no n/v. Patient's diet was advanced as tolerated, encouraged to ambulate. She was discharged home in the evening of POD # 0 in stable condition. Total Time Total Time Spent Total Time Spent (In Minutes): 30 Total Time Includes: Examination of the Patient, Discharge Planning and Medication Reconciliation Discharge Plan Discharge Items Patient Disposition: Home - Self-Care Reason For Visit: APPENDICITIS Discharge Diagnosis: Same Discharge Goals: Decrease discomfort and Improve function Activity: Per 'Additional Instructions' section Non-emergency contact: Surgeon Call non-emergency contact if: your symptoms worsen, your pain is not controlled , your pain is worsening, your pain is unusual for you, you have a fever, your temperature is above 101, your wound has increased redness and your wound has increased drainage Diet: Regular Addtl Provider Instructions: No heavy lifting over 20 pounds for 2 weeks No strenuous activity until cleared by surgeon No submerging incisions underwater for 2 weeks (no swimming, bathing, or hot tubs) No driving while taking narcotic pain medication or until you are pain free You may shower in 24 hours. Leave steri strips on incisions for 7 days and then remove. They may fall off on their own that is okay. Walking and light activity is encouraged daily to prevent blood clots from forming in your legs You will be given prescription for narcotic pain medication (Percocet) as needed for moderate to severe pain. Take as directed. This medication may cause drowsiness or constipation. You may take extra strength Ibuprofen as needed for mild pain. -Can take 600 mg of Ibuprofen every 6 hours as needed Avoid Tylenol with Percocet as Percocet has Tylenol in it To avoid constipation: drink plenty of liquids daily, avoid foods that constipate, daily walking. You may take OTC stool softener (Colace) daily or twice a day while taking pain medication. If those measures do not work, you may take Miralax or Milk of Magnesia. Follow-up in surgical office in 1-2 weeks, please call office at [phone] to make an appointment Prescriptions: New oxycodone-acetaminophen [Percocet] 5-325 mg Tablet 1 tab PO Q4H PRN (Reason: pain) Qty: 18 RF: 0 Continue amlodipine 5 mg tablet 5 mg PO DAILY RF: 0 timolol maleate 0.5 % drops 1 drp OPR BID RF: 0 Stand-Alone Forms: [facility], Opioid Pain Management Discharge Orders: Discharge Order (Routine); Ordered 10/17/18 Ordered By: Vinita Albrecht Admission Data Admit Date/Time: 10/17/18 02:01 Attending Provider: Vanna Ramirez Admit Provider: Vanna Ramirez Primary Care Provider: Semaj Baig III Other Providers: Vanna Ramirez Service: Surgical Services Other Interventions: Discharge Summary Assessment (RN) Last Done: 10/17/18 12:06 Pending Studies at Discharge: Yes (Appendix pathology, will be reviewed at follow-up visit) DC Date/Time DO NOT enter until pt leaves facility: 10/17/18 16:29
== END 2018-10-17 16:29 | disposition home or self-care (01) ==
LOC: 3W 21:21 → ED 21:21 → 3W 23:59